=== PATIENT | male | born 1965 | race Caucasian/White ===

== ENCOUNTER 2024-01-29 18:43 | Emergency (ER) | payer BC, SELFPAY ==
[2024-01-29 18:49] VITALS: BP 148/87
[2024-01-29 19:37] VITALS: BP 121/61
[2024-01-29 19:40] LABS: % Basophils 1.3 % (0-2); % Eosinophils 3.3 % (0-6); % Immature Granulocytes 0.3 % (0-0.5); % Lymphocytes 39.3 % (20.5-51.1); % Monocytes 8.3 % (1.7-9.3); % Neutrophils 47.5 % (42.2-75.2); Absolute Basophils 0.1 10^3/uL (0-0.2); Absolute Eosinophils 0.3 10^3/uL (0-0.7); Absolute Lymphocytes 3.1 10^3/uL (1.2-3.4); Absolute Monocytes 0.7 10^3/uL (0.1-0.6); Absolute Neutrophils 3.7 10^3/uL (1.4-6.5); Hematocrit 41.4 % (39.0-52.0); Hemoglobin 14.2 g/dL (13.0-18.0); Mean Corp Hgb Conc. 34.3 g/dL (33.0-37.0); Mean Corpuscular Hgb 30.5 pg (27.0-31.0); Mean Corpuscular Volume 88.8 fL (80.0-94.0); Mean Platelet Volume 9.3 fL (7.4-10.4); Nucleated Red Blood Cells % 0 % (-); Platelet Count 261 10^3/uL (130-400); Red Blood Cell Count 4.66 10^6/uL (4.70-6.10); Red Cell Dist. Width 12.9 % (11.5-14.5); White Blood Cell Count 7.8 10^3/uL (4.8-10.8)
[2024-01-29 19:55] LABS: ALT (SGPT) 25 U/L (0-50); AST (SGOT) 26 U/L (17-59); Albumin 3.7 g/dl (3.5-5.0); Alkaline Phosphatase 75 U/L (38-126); Blood Urea Nitrogen 21 mg/dl (9-20); Calcium 8.8 mg/dl (8.4-10.2); Carbon Dioxide 27 mmol/L (22-30); Chloride 104 mmol/L (98-107); Glucose 167 mg/dl (70-99); Sodium 137 mmol/L (135-145); Total Bilirubin 0.5 mg/dl (0.2-1.3); Total Protein 6.3 g/dl (6.3-8.2); eGFR > 60.00
[2024-01-29 20:00] VITALS: BP 138/81
[2024-01-29 20:02] VITALS: BMI 31.8
[2024-01-29 20:21] LABS: Troponin I < 0.012 ng/ml
--- NOTE | 2024-01-29 20:46 | ED.GENMED ---
History of Present Illness
General
Chief Complaint: Chest Pain
Source: patient
Exam Limitations: none
Time Seen by Provider: 01/29/24 20:01
History of Present Illness
History of Present Illness:
58-year-old male insulin-dependent diabetic presents with intermittent chest discomfort over the past 2 weeks. Describes it as a throbbing sensation to the left upper chest that does not radiate to his neck or arm. No associated nausea diaphoresis
or shortness of breath. No recent travel. No leg swelling or calf pain. No fever or cough. No known injury. No other complaints at this time. Pain is not pleuritic
Past History
Social History
Personal:
Living: with family
Phy Exam
Physical Exam
Physical Exam:
General: Well-appearing male no acute respiratory distress
HEENT: Normocephalic atraumatic
Heart: Regular rate and rhythm no murmurs
Lungs: Clear no wheeze
Abdomen is soft nontender nondistended no guarding or rebound normal bowel sounds
Extremities: No cyanosis or edema
Scores
Heart Score for Chest Pain Patients
STEMI patient?: No
History: Slightly or Non-Suspicious
ECG: Normal
Age: >45 - <65 years
Risk Factors: 1 or 2 Risk Factors
Troponin: </= Normal Limit
Heart Score for Chest Pain Patients: 2
Heart Score Risk: 2.5% MACE over next 6 weeks
Course
Orders/Labs/Results
Orders:
Orders
01/29/24 18:45
EKG [Electrocardiogram (*1)] Urgent
Reason for Study: Chest Pain
EKG- Treatment ONCE
01/29/24 19:33
Complete Blood Count/With Diff Urgent
Comprehensive Metabolic Panel Urgent
Troponin I Urgent
01/29/24 20:34
CR Chest - 2 Views Urgent
Comment:
Reason For Exam: chest pain
Abnormal Lab Results
01/29/24
19:33
RBC 4.66 L 10^6/uL
(4.70-6.10)
Absolute Monos (auto) 0.7 H 10^3/uL
(0.1-0.6)
BUN 21 H mg/dl
(9-20)
Glucose 167 H mg/dl
(70-99)
01/29/24 19:33
01/29/24 19:33
Vital Signs
Initial and Last Documented VS:
Initial Vital Signs
Temp Pulse Resp BP Pulse Ox
98.2 F 65 19 148/87 97
01/29/24 18:49 01/29/24 18:49 01/29/24 18:49 01/29/24 18:49 01/29/24 18:49
Last Documented Vital Signs
Temp Pulse Resp BP Pulse Ox
98.2 F 63 14 138/81 96
01/29/24 18:49 01/29/24 20:00 01/29/24 20:00 01/29/24 20:00 01/29/24 20:08
MDM/Problems Addressed
Differential Diagnosis Includes:
Chest pain. Consider ACS versus palpitations versus chest wall strain versus PE
Do not suspect PE given no recent travel no signs of DVT vital signs are stable pain is not pleuritic
EKG shows sinus bradycardia without ischemic changes.
Troponin was undetectable. Consider repeat troponin however not indicated as symptoms have been going on for 2 weeks. Chest x-ray pending.
*Critical Care Note
Total Time (30-74mins, 75-104mins- exclusive of procedures): Not Applicable
Update Note
Update Note:
Chest x-ray negative. Patient remains nontoxic. Will discharge patient with chest pain hotline follow-up. Return precautions were given.
ED Attending Note
-
Portions of this chart may have been created with voice recognition software.� Occasional wrong word or��sound alike� substitutions may have occurred due to the inherent limitations of voice recognition software.
Discharge Plan
Departure
Patient Disposition: Home (Routine Discharge)
Date of Disposition: 01/29/24
Time of Disposition: 23:15
Patient with high blood pressure during this ER visit?: No
Discharge Problem:
Chest pain
Instructions: Chest Pain DCA Follow Up
Referrals:
Sammy Briscoe MD [Family Provider] -
Activity Restrictions/Additional Instructions:
Please return here for worsening symptoms otherwise follow-up with your family doctor and cardiology
Interventions
Interventions:
*Risk Screen - Suicide Last Done: 01/29/24 18:48
*General Assessment Last Done: 01/29/24 20:02
*Neglect/Abuse Screening Last Done: 01/29/24 18:48
ED- Fall Risk Assessment Last Done: 01/29/24 20:02
*ED COVID-19 Vaccine History Last Done: 01/29/24 20:02
ED- Cardiac Assessment Last Done: 01/29/24 20:02
Discharge Date and Time
Print Language: ARMENIAN
[2024-01-29 21:00] VITALS: BP 143/87
== END 2024-01-29 23:28 | disposition home or self-care (01) ==
LOC: EMR 18:43
PROVIDERS: Emergency Medicine; EMERGENCY PHYSICIAN Emergency Medicine; FAMILY PHYSICIAN Family Medicine
DX: R07.89 Other chest pain (principal)
CPT/HCPCS: 99283; 71046; 80053; 84484; 85025; 93005